=== PATIENT | male | born 1965 | race Caucasian/White ===

== ENCOUNTER 2023-06-13 09:10 | Emergency (ER) | payer OTHER, SELFPAY ==
[2023-06-13 09:19] VITALS: BP 125/74; PULSE 66; RESP 18; TEMP 36.4; O2SAT 95; BMI 37.6
--- NOTE | 2023-06-13 09:26 | XR_ITS ---
Patient: HEYDI GRIFFITH Facility:?[facility] Patient ID:?[id number] Site Patient ID:?[id number]. Site :?1965 Study:?XRay-Extremity Right ELBOW-06/13/2023 9:54:21 AM Ordering Physician:MANJINDER Final Report: Indication: Injury. Technique: Right elbow 3 views. Comparison: None. Findings/Impression: Bones: Lateral image demonstrates a calcified body anterior to the elbow joint measuring 17 x 6 mm. However, this is not confidently seen on the other images. No other osseous abnormality. No fracture line evident. Joint spaces: No definite joint effusion. Soft tissues: Unremarkable. Dictated by Eris Sweet MD @ 06/13/2023 10:04:50 AM Signed by:?Eris Sweet MD @06/13/2023 10:04:50 AM (Electronic Signature)
--- NOTE | 2023-06-13 09:27 | ED_ITS ---
HPI - Extremity Injury (Upper) General Chief Complaint: Extremity Pain/Injury, Upper Stated Complaint: Fell, injured R elbow, L wrist Time Seen by Provider: 06/13/23 09:24 History of Present Illness HPI narrative: This 57-year-old male comes in with an injury to his right elbow. He slipped on ice while walking his dog and landed on his right elbow. He reports some mild discomfort also in his left wrist but has good range of motion. He thinks that he might have dislocated his elbow. He did not hit his head or have any other injury. Related Data Home Medications Medication Instructions Recorded Confirmed buspirone 15 mg tablet 15 mg PO BID 06/13/23 06/13/23 escitalopram oxalate 20 mg tablet 20 mg PO DAILY 06/13/23 06/13/23 pantoprazole 20 mg tablet,delayed 20 mg PO DAILY 06/13/23 06/13/23 release polymyxin B sulfate 10,000 1 drp ophthalmic (eye) Q4H 06/13/23 06/13/23 unit-trimethoprim 1 mg/mL eye drops Previous Rx's Medication Instructions Recorded hydrocodone 5 mg-acetaminophen 325 1 tab PO Q4-6H PRN pain #15 tabs 06/13/23 mg tablet Allergies Allergy/AdvReac Type Severity Reaction Status Date / Time amoxicillin Allergy Verified 06/13/23 09:21 NSAIDS (Non-Steroidal Allergy Verified 06/13/23 09:21 Anti-Inflamma Review of Systems Status of ROS: Reports: 10 or more systems reviewed and unremarkable except as noted in History and below Narrative: Constitutional: No fevers, no weight gain or loss. Eyes: No discharge. No vision changes. HENT: No congestion, no sore throat, no ear pain. Cardiovascular: No chest pain, no palpitations. Respiratory: No shortness of breath, no wheezes, no cough. Gastrointestinal: No abdominal pain, no vomiting, no diarrhea. Genitourinary: No dysuria, no hematuria. Musculoskeletal: Right elbow injury as described above. Skin: No rashes, no pruritis. Neurological: No dizziness, weakness, sensory change, speech change. Endo/Heme/Allergies: No bruising or bleeding. No polydipsia. Pysch: no suicidality, no anxiety, no insomnia. All other systems reviewed and are negative. Exam Narrative: Exam Narrative: Constitutional: Well-developed, well-nourished, no acute distress. HEENT: Normocephalic, atraumatic. Neck: Normal range of motion. Nontender. Supple. Heart: Regular. No murmurs. Normal rate. Intact distal pulses. Lungs: Clear to auscultation. No chest discomfort. No wheezes, rhonchi, or rales. Abdomen: Normal bowel sounds. Nontender. No rebound tenderness. Genitalia: Deferred. Back: No midline tenderness. Normal range of motion. Extremities: Diffuse swelling of the right elbow with associated tenderness. Skin: Intact. No rash. Warm. No erythema or pallor. Neurologic: No altered sensation. No weakness. Alert and oriented. Psychiatric: No suicidality. No anxiety or depression. No insomnia. Nursing notes and vitals signs are reviewed. Const: Vital Signs, click to edit/add: Vital Signs - 24 hr 06/13/23 09:19 Temperature 97.5 F L Pulse Rate [Right Pulse Oximeter] 66 Respiratory Rate 18 Blood Pressure [Ri ght Upper Arm] 125/74 Pulse Oximetry 95 Oxygen Delivery Me thod Room Air Course Vital Signs Vital signs: Initial Vital Signs Temperature 97.5 F L 06/13/23 09:19 Temperature Source Temporal Artery Scan 06/13/23 09:19 Pulse Rate 66 06/13/23 09:19 Respiratory Rate 18 06/13/23 09:19 Blood Pressure 125/74 06/13/23 09:19 Blood Pressure Mean 91 06/13/23 09:19 Blood Pressure Position Sitting 06/13/23 09:19 Pulse Oximetry 95 06/13/23 09:19 Oxygen Delivery Method Room Air 06/13/23 09:19 Vital Signs Temperature 97.5 F L 06/13/23 09:19 Pulse Rate 66 06/13/23 09:19 Respiratory Rate 18 06/13/23 09:19 Blood Pressure 125/74 06/13/23 09:19 Pulse Oximetry 95 06/13/23 09:19 Oxygen Delivery Method Room Air 06/13/23 09:19 Temperature 97.5 F L 06/13/23 09:19 Pulse Rate 66 06/13/23 09:19 Respiratory Rate 18 06/13/23 09:19 Blood Pressure 125/74 06/13/23 09:19 Pulse Oximetry 95 06/13/23 09:19 Oxygen Delivery Method Room Air 06/13/23 09:19 Medications Administered Medications: Discontinued Medications Generic Name Dose Route Start Last Admin Trade Name Cade PRN Reason Stop Dose Admin Hydrocodone Bitart/Acetaminophen 1 tab 06/13/23 10:01 06/13/23 10:14 Hydrocodone-Acetamin 5-325 Mg 1 Tab PO 06/13/23 10:02 1 tab ONCE ONE Administration MDM - Extremity Injury (Upper) MDM Narrative Medical decision making narrative: This patient comes in with an injury to his right elbow. X-ray images are obtained in by my review and with radiology report there is a osseous structure that is visualized only on 1 lateral view. This is not seen on other views. There is no fracture line evidence in these images. This was reassuring to the patient. He did receive a sling and an oral tablet of [place]. A prescription for [place] is provided also. He is encouraged to follow-up with orthopedic clinic if not improving otherwise he should increase activity as tolerated. Discharge Plan Discharge Clinical Impression: Contusion of elbow, right Patient Disposition: Home, Self-Care Condition: Stable Additional Instructions: Wear sling as needed. Increase activity as tolerated. Take medication also as needed and directed. Follow up with MD or orthopedic clinic or return if worsening. Prescriptions: New hydrocodone-acetaminophen 5-325 mg tablet 1 tab PO Q4-6H PRN (Reason: pain) Qty: 15 0RF No Action pantoprazole 20 mg tablet,delayed release (DR/EC) 20 mg PO DAILY polymyxin B sulf-trimethoprim 10,000 unit- 1 mg/mL drops 1 drp ophthalmic (eye) Q4H buspirone 15 mg tablet 15 mg PO BID escitalopram oxalate 20 mg tablet 20 mg PO DAILY Follow Up/Referrals: Provider,Not a Local [Primary Care Provider] - Stand Alone Forms: Zhui [facility] Info Instructions
[2023-06-13] MEDS: HYDROCODONE-ACETAMIN 5-325 MG 1 TAB PO (10:14)
== END 2023-06-13 11:13 | disposition home or self-care (01) ==
PROVIDERS: Emergency Provider Emergency Medicine Emergency Medical Services
DX: S50.01XA Contusion of right elbow, initial encounter (principal); W00.0XXA Fall on same level due to ice and snow, initial encounter; Y93.K1 Activity, walking an animal
CPT/HCPCS: 73080; 99283; 99284; A9270

== ENCOUNTER 2023-06-29 09:15 | Outpatient (CLI) | payer OTHER, SELFPAY ==
--- NOTE | 2023-06-29 09:15 | MR_ITS ---
[address] [address] Phone:?[phone] Fax:?[phone] Referring Physician Information: De Khan M.D. [id number] [facility] [address] Phone:?[phone] Fax:?[phone] Patient:Dell Wilkes D.O.B:?1965 Sex:?Male Phone:?[phone] [facility] MRN:?[id number] Exam Date:?06/29/2023 EXAM: MRI OF THE RIGHT ELBOW CLINICAL INFORMATION: The patient is a 57-year-old with right elbow pain. Evaluate for loose body. Evaluate fracture. PRIOR SURGERY: None reported. COMPARISON STUDIES: Comparison is made to prior radiographs dated 06/13/2023. TECHNICAL INFORMATION: Imaging was performed on a high-field, 1.5 [place] MR scanner. Axial, coronal, and sagittal proton-density and T2 imaging of the right elbow was performed in addition to coronal STIR imaging. FINDINGS: Elbow joint: Effusion: Moderate. Subcutaneous soft tissue edema and/or hemorrhage can be seen circumferentially about the right elbow. Ganglion cyst: No well-defined ganglion cyst formation is identified. Osteochondral surfaces: Disruption of the articular surfaces can be seen in the region of the coronoid process fracture discussed below. There is no evidence for well-defined osteochondral fragmentation along the articular surfaces. No well-defined areas of broad-based, full-thickness chondral defects are noted. Loose bodies: A displaced fracture of the coronoid process can be seen as discussed below. No other intra-articular loose bodies are identified. Olecranon bursa: No well-defined fluid collection can be seen to suggest bursitis. Osseous structures: Humerus: Imaging of the distal humerus demonstrates areas of increased marrow signal intensity involving the posterior aspects of the medial and lateral humeral condyles. Areas of suspected bony impaction are present. The findings may be related to a dislocation event of the elbow. No additional areas of well- defined bony injury of the distal humerus can be seen. No well-defined osteochondral fragmentation can be seen along the articular surfaces of the capitellum. Radius: Marrow edema within the proximal radius can be seen, most prominently noted along the anterior and lateral aspects, seen on coronal series 4 image 12 and on coronal series 4 image 10. The findings are in keeping with broad-based areas of bony contusion and may be related to elbow dislocation. Mild cortical impaction along the anterior aspect of the radial head is thought to be present on sagittal images. CT scanning may be helpful in further evaluation. Ulna: Imaging of the proximal ulna demonstrates marrow edema involving the coronoid process region with a displaced fracture fragment seen on sagittal series 5 image 15 and on coronal series 6 image 14. The displaced fracture of the coronoid process measures approximately 15 mm in mediolateral dimension, 9 mm in craniocaudal dimension, and 9 mm in anteroposterior dimension. CT scanning may be helpful in further evaluation of this coronoid process fracture. No other definite evidence for well-defined bony injury of the proximal ulna can be seen. Myotendinous structures: Biceps: Intact, without tendinopathy or tear. Triceps: Intact posterior tendinous and anterior muscular insertions and lateral aponeurotic component, without tendinopathy, strain or tear. Brachialis: Strain of the distal brachialis can be seen without evidence for rupture or retraction. Forearm extensors: Moderate thickening and irregularity of the common extensor origin can be seen with areas of intrasubstance splitting. No definite evidence for complete disruption or retraction is identified. No other definite injuries to the forearm extensors can be seen. Forearm flexors: No evidence for rupture of the common flexor origin is seen, however broad-based strain is noted involving the flexor digitorum superficialis muscle belly and myotendinous junction on coronal series 4 image 13 and on axial series 3 image 63. No other definite injuries of the forearm flexors are noted. Ligaments: Ulnar collateral: There is severe sprain and suspected rupture of the ulnar collateral ligament, noted to best advantage on coronal series 4 image 11. Radial collateral: Suspected disruption of the proximal attachments of the radial collateral ligament are seen on coronal series 4 image 11. Lateral ulnar collateral: A moderate to severe injury to the lateral ulnar collateral ligament can be seen on coronal series 4 image 8. Full-thickness tearing cannot be excluded on the basis of this MRI examination. Annular: Intact. Neurovascular structures: Ulnar nerve: Normal, without appreciable edema, thickening or mass. Median neurovascular bundle: Normal. Radial neurovascular bundle: Normal. CONCLUSION: 1. Findings in keeping with an elbow dislocation event, including a displaced fracture of the coronoid process as well as areas of contusion and/or impaction of the distal humerus and proximal radius. CT scanning may be helpful in further evaluation of bony injuries if clinically warranted. 2. Moderate elbow joint effusion. 3. Suspected areas of injury and disruption involving the ulnar and radial collateral ligaments with additional injury to the lateral ulnar collateral ligament. 4. Thickening and splitting of the common extensor origin at the lateral epicondyle without definite evidence for complete disruption. 5. Broad-based strain of the flexor digitorum superficialis without definite evidence for disruption of the common flexor origin. 6. No definite neurovascular abnormalities are identified. AEC Electronically signed on 06/29/2023 11:18:00 AM by Kenny Garay M.D.
== END 2023-06-29 09:16 | disposition home or self-care (01) ==
PROVIDERS: PCP Physician Assistant Medical; Visit Provider Orthopaedic Surgery Sports Medicine
DX: M25.521 Pain in right elbow (principal); S53.104A Unspecified dislocation of right ulnohumeral joint, initial encounter; M25.421 Effusion, right elbow; S42.401A Unspecified fracture of lower end of right humerus, initial encounter for closed fracture; M24.021 Loose body in right elbow
CPT/HCPCS: 73221

== ENCOUNTER 2023-08-26 08:15 | Outpatient (RCR) | payer OTHER, SELFPAY ==
--- NOTE | 2023-08-10 09:49 | OT.OPOE ---
OT Outpatient Ortho Eval OT Outpatient Ortho Eval* Start: 08/10/23 08:28 Freq: Status: Active Protocol: Document 08/10/23 08:29 KEVIN (Rec: 08/10/23 09:48 KEVIN [id number]) E-signed By Rianna Mendoza OTR/L, CLT OT OP Ortho Eval Details Complexity Complexity Low Insurance Information Other Insurance [employer] Outpatient History/Precautions Current Condition/Medical Diagnosis Referring Provider Dr. De Khan Treatment Diagnosis M25.621: Stiffness of R elbow; M25.521 Pain in R elbow Date of Onset 06/13/23 slipped on ice while walking his dog Other Precautions Medical Dx: S42.401A - Unspecified fracture of lower end of right humerus, initial encounter for closed fracture S42.401A - Unspecified fracture of lower end of right humerus, initial encounter for closed fracture, S53.104A - Unspecified dislocation of right ulnohumeral joint, initial encounter, S53.401A - Unspecified sprain of right elbow, initial encounter, S66.819A - Strain of other specified muscles, fascia and tendons at wrist and hand level, unspecified hand, initial encounter Other Conditions (Had a R wrist break and surgery repair about 4 years ago but patient states this isn't impacting the R elbow) Strain of flexor digitorum superficialis tendon (Acute) Broad-based strain of the flexor digitorum superficialis S66.819A - Strain of other specified muscles, fascia and tendons at wrist and hand level, unspecified hand, initial encounter Sprain of right elbow (Acute) - Injury and disruption of the ulnar and radial collateral ligaments, and injury of the lateral ulnar collateral ligament - Thickening and splitting of the common extensor origin at the lateral epicondyle S53.401A - Unspecified sprain of right elbow, initial encounter (ICD-10) Effusion of right elbow (Acute ) moderate M25.421 - Effusion, right elbow (ICD-10) Closed fracture of right elbow (Acute) displaced fracture of the coronoid process as well as areas of contusion and/or impaction of the distal humerus and proximal radius S42.401A - Unspecified fracture of lower end of right humerus, initial encounter for closed fracture (ICD-10) Loose body of right elbow M24.021 - Loose body in right elbow (ICD-10) Dislocation of elbow, right, closed (Acute) S53.104A - Unspecified dislocation of right ulnohumeral joint, initial encounter (ICD-10) Medical/Functional History Medical History Reviewed Yes Prior Level of Function/Mobility Indep with self-cares/IADLs 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 Social History 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 This injury occurred on when he slipped on ice while walking his dog. Chief compliant now is R elbow stiffness, lacking AROM, decreased strength and 3/10 elbow pain. Pain Assessment Pain Present Pain Present Pain Reported Location Right Elbow Description Radiating,Pressure,With Movement,Heaviness Intensity 3 Goniometric Comments Goniometric Comments Goniometric Comments UE Elbow Extension/Flexion AROM: (20-120 degrees) Passively 16-130 degrees ( slight pain increase to 4 out of 10 with extension) Pronation/Supination: 90/90, Wrist AROM is FULL Hand Pinch/Precision Lens Generator Strength Hand Right Precision Lens Generator Strength Position 1 (lbs) 45 Precision Lens Generator Strength Position 2 (lbs) 35 Lateral Pinch Strength (lbs) 11 Three Point Pinch (lbs) 11 Tip Pinch Strength (lbs) 5 Left Precision Lens Generator Strength Position 1 (lbs) 65 Precision Lens Generator Strength Position 2 (lbs) 62 Lateral Pinch Strength (lbs) 13 Three Point Pinch (lbs) 11 Tip Pinch Strength (lbs) 7 OT Objective Data Observations/Posture/Limb Appearance Objective Observations R UE: Patient still has tenderness: moderately tender posterolateral elbow, mildly tender medial elbow Skin/Wounds/Edema Comments Right Elbow: No erythema, induration or other cutaneous changes Sensation Sensation Assessment Summary Comments R UE: Intact sensation, 2+ radial pulse, Neurologic intact distally Digits pink, warm, brisk cap refill. Patient reports no numbness, tingling, burning sensations in any part of the R UE. Additional Information Objective Additional Information X-ray (copied from chart): IMAGING: AP and Lateral views of the right elbow were obtained today from [facility] , were ordered and reviewed by me today, and show concentrically reduced radiocapitellar and ulnar trochlear joints. The small anterior fracture fragment which appears to be a coronoid fracture remains in a relatively stable position with moderate displacement. Appears to be a type 2 coronoid fracture. Effusion has diminished significantly. OT Problems Problems Problems Decreased Strength,Decreased Range of Motion,Pain,Lifting, Gripping,Pinching Other Problems Opening Containers,Dressing, Computer,Sleeping Patient Potential Excellent Assessment Assessment Assessment 58-year-old pleasant R hand dominant male presents to the clinic with injury to the R UE : closed treatment of a closed acute displaced fracture of the coronoid process as well as areas of contusion and/or impaction of the distal humerus and proximal radius. This injury occurred on when he slipped on ice while walking his dog. Chief compliant now is R elbow stiffness, lacking AROM, decreased strength and 3/10 elbow pain. Lab Associate/Pinches (see grid) are below norms for gender/age. Patient reported to therapist that he is still sleeping in the sling at night just because it is more comfortable for him, reminded him that we need to slowly wean from doing this, suggested him to try a pillow from armpit down the arm instead. Patient is anticipated to achieve all goals written in this POC. Patient will f/u with Dr. Khan on 10/01/23 at 8:30 am for clinical reassessment and repeat x-rays, two views of the right elbow. Occupational Therapy Treatment Plan - OP Potential Rehabilitation Potential Excellent Barriers Barriers to goal attainment None noted, patient highly motivated Set Goals Goals Set with Patient Yes Goals Goals 1. Patient will increase AROM of the R (dominant) UE (On EVAL 08/10/23: UE Elbow Extension/Flexion AROM: (20- 120 degrees) Passively 16-130 degrees (slight pain increase to 4 out of 10 with extension) . 2. 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 3. Through activity participation in skilled therapy sessions, and consistency in performing a customized HEP, patient will improve capacity of tendons and muscles to manage load in order to have less pain with ADLs, work, leisure activities and IADLs. Target Date 8 weeks Treatment Plan Treatment Plan Evaluation,Edema Control,Joint Mobilization,Manual Therapy, Ultrasound,Therapeutic Exercise,Therapeutic Activities,Self Care/Home Management,Education Expected Frequency 1-2x Week Expected Duration 8-10 Weeks Home Program Home Program Home Program Initiated Home Program Specifics Patient is borrowing therapist personal [employer] to work on gentle stretches and strengthening. Taught and trained him on use of device in clinic with hand in 3 different positions (palm up, neutral and palm down). Patient demonstrated understanding of this and was provided with a handout with pictures. Recertification Information Recertification Information Initial Certification Date 08/10/23 Recertification Due Date 11/08/23 Click To Default 'Per treatment plan' Per treatment plan Continued Plan of Care and Interventions Per treatment plan Provider Signature Shows Agreement With POC & Medical Necessity Physician Comment/Change Comment or Changes Physician NPI Number #
== END 2023-10-28 13:14 | disposition home or self-care (01) ==
PROVIDERS: PCP Physician Assistant Medical; Visit Provider Orthopaedic Surgery Sports Medicine
DX: S42.401A Unspecified fracture of lower end of right humerus, initial encounter for closed fracture (principal); S53.104A Unspecified dislocation of right ulnohumeral joint, initial encounter; S53.401A Unspecified sprain of right elbow, initial encounter; S66.819A Strain of other specified muscles, fascia and tendons at wrist and hand level, unspecified hand, initial encounter; M25.621 Stiffness of right elbow, not elsewhere classified; M25.521 Pain in right elbow; Z51.89 Encounter for other specified aftercare
CPT/HCPCS: 97035; 97110; 97140; 97165; X5282

== ENCOUNTER 2024-02-03 23:26 | Emergency (ER) | payer OTHER, SELFPAY ==
[2024-02-03 23:39] VITALS: BP 138/85; PULSE 61; RESP 16; TEMP 37.1; O2SAT 95; BMI 38.7
--- NOTE | 2024-02-04 00:02 | CRLHL7_ITS ---
For Patients: As a result of the Century Cures Act, medical imaging exams and procedure reports are released immediately into your electronic medical record. You may view this report before your referring provider. If you have questions, please contact your health care provider. INDICATION: Pain. TECHNIQUE: Left foot 3 view. COMPARISON: None. FINDINGS: No acute fracture or dislocation. Accessory navicular. Chronic appearing ossicles adjacent to the distal tibia and fibula. Plantar calcaneal spur. Mild diffuse soft tissue swelling. IMPRESSION: Mild diffuse soft tissue swelling. No fracture identified. Dictated by Vicky Pimentel MD @ 02/04/2024 1:04:05 AM (Electronically Signed)
--- NOTE | 2024-02-04 00:02 | ED_ITS ---
HPI - General Adult General Chief complaint: Extremity Pain/Injury, Lower Stated complaint: left foot pain Time Seen by Provider: 02/03/24 23:53 History of Present Illness HPI narrative: Patient is a 58-year-old gentleman who comes in today with pain across the metatarsal heads of his left foot. He has had no fevers no chills no night sweats. He has had previous cellulitis of his foot but this feels slightly different. He has had no recent injuries. He has no skin breakdown. Does have some redness and bogginess across the metatarsal heads but no other significant symptoms. Pain is severe he is unable to the bear weight without significant discomfort. Related Data Home Medications ?Medication ?Instructions ?Recorded ?Confirmed escitalopram oxalate 20 mg tablet 20 mg PO DAILY 06/13/23 10/01/23 pantoprazole 20 mg tablet,delayed 20 mg PO DAILY 06/13/23 10/01/23 release polymyxin B sulfate 10,000 1 drp ophthalmic (eye) Q4H 06/13/23 10/01/23 unit-trimethoprim 1 mg/mL eye drops Previous Rx's ?Medication ?Instructions ?Recorded hydrocodone 5 mg-acetaminophen 325 1 tab PO Q4-8H PRN pain #25 tabs 07/01/23 mg tablet Allergies Allergy/AdvReac Type Severity Reaction Status Date / Time amoxicillin Allergy Verified 02/03/24 23:39 NSAIDS (Non-Steroidal Allergy Verified 02/03/24 23:39 Anti-Inflamma Review of Systems Status of ROS: Reports: 10 or more systems reviewed and unremarkable except as noted in History and below [facility] Medical History Upper gastrointestinal hemorrhage (11/18/12) ?K92.2 - Gastrointestinal hemorrhage, unspecified (ICD-10) Prediabetes ?R73.03 - Prediabetes (ICD-10) Obesity with body mass index 30 or greater (11/18/12) ?E66.9 - Obesity, unspecified (ICD-10) Irritable bowel syndrome ?K58.9 - Irritable bowel syndrome without diarrhea (ICD-10) Gastroesophageal reflux disease (11/18/12) ?K21.9 - Gastro-esophageal reflux disease without esophagitis (ICD-10) Fracture of wrist ?S62.109A - Fracture of unspecified carpal bone, unspecified wrist, initial encounter for closed fracture (ICD-10) Fracture of radius ?S52.90XA - Unspecified fracture of unspecified forearm, initial encounter for closed fracture (ICD-10) Eczema (11/18/12) ?L30.9 - Dermatitis, unspecified (ICD-10) Depression (11/18/12) ?F32.A - Depression, unspecified (ICD-10) Closed fracture of styloid process of ulna ?S52.613A - Displaced fracture of unspecified ulna styloid process, initial encounter for closed fracture (ICD-10) 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 (ICD-10) Surgical History History of umbilical hernia repair (11/18/12) ?Z98.890 - Other specified postprocedural states (ICD-10) ?Z87.19 - Personal history of other diseases of the digestive system (ICD-10) H/O hernia repair ?Z98.890 - Other specified postprocedural states (ICD-10) ?Z87.19 - Personal history of other diseases of the digestive system (ICD-10) S/P ORIF (open reduction internal fixation) fracture (04/01/20) ?Z98.890 - Other specified postprocedural states (ICD-10) ?Z87.81 - Personal history of (healed) traumatic fracture (ICD-10) Social History Smoking Status: Never smoker Do you use any of these nicotine containing products: None Second hand tobacco smoke exposure: No How often do you have a drink containing alcohol: never How often do you have six or more drinks on one occasion: Never AUDIT-C Alcohol total score: 0 Non-prescribed substance use: denies use service: No Exam Narrative: Exam Narrative: EXAM GENERAL: Patient appears comfortable and well. EYES: No scleral icterus. ENT: Tympanic membranes and oropharynx normal. THYROID: no thyroid nodules or thyromegaly. LYMPH: No supraclavicular or cervical lymphadenopathy. SKIN: Visible skin seen during exam normal or with benign process only. EXT: Mild swelling and induration of the metatarsal heads pain to palpation. HEART: Regular rate and rhythm with no murmurs, rubs, or gallops. LUNGS: Clear to auscultation bilaterally with no crackles or wheezes. ABD: Soft, non tender, non distended. PSYCH: Good eye contact, speech is not pressured. Const: Vital Signs, click to edit/add: Vital Signs - 24 hr 02/03/24 23:39 Temperature 98.8 F Pulse Rate [Pulse Oximeter] 61 Respiratory Rate 16 Blood Pressure [Ri ght Upper Arm] 138/85 Pulse Oximetry 95 Oxygen Delivery Me thod Room Air Course Course ED Course: Patient seen and examined. X-ray performed showing no acute abnormalities. Vital Signs Vital signs: Initial Vital Signs Temperature 98.8 F 02/03/24 23:39 Temperature Source Temporal Artery Scan 02/03/24 23:39 Pulse Rate 61 02/03/24 23:39 Respiratory Rate 16 02/03/24 23:39 Blood Pressure 138/85 02/03/24 23:39 Blood Pressure Mean 102 02/03/24 23:39 Blood Pressure Position High-Fowlers 02/03/24 23:39 Pulse Oximetry 95 02/03/24 23:39 Oxygen Delivery Method Room Air 02/03/24 23:39 Vital Signs Temperature 98.8 F 02/03/24 23:39 Pulse Rate 61 02/03/24 23:39 Respiratory Rate 16 02/03/24 23:39 Blood Pressure 138/85 02/03/24 23:39 Pulse Oximetry 95 02/03/24 23:39 Oxygen Delivery Method Room Air 02/03/24 23:39 Temperature 98.8 F 02/03/24 23:39 Pulse Rate 61 02/03/24 23:39 Respiratory Rate 16 02/03/24 23:39 Blood Pressure 138/85 02/03/24 23:39 Pulse Oximetry 95 02/03/24 23:39 Oxygen Delivery Method Room Air 02/03/24 23:39 Medical Decision Making MDM Narrative Medical decision making narrative: Patient is a 58-year-old gentleman comes in today with pain across the metatarsal heads as well as swelling this is most consistent with gout. Other considerations would be cellulitis osteomyelitis fracture sprain. This time for review his x-rays a did send him home with short course of prednisone. He will follow-up with primary physician to further evaluate possible causes including checking serum uric acid and electrolytes. I do not believe checking them tonight would add anything to his treatment. Discharge Plan Discharge Clinical Impression: Gout Patient Disposition: Home, Self-Care Condition: Stable Instructions: Gout (ED) Additional Instructions: Prednisone as directed Tylenol Weight-bearing as tolerated Follow-up with your doctor as needed. Activity Level: No Restrictions Discharge Diet: Regular Prescriptions: No Action hydrocodone-acetaminophen 5-325 mg tablet 1 tab PO Q4-8H PRN (Reason: pain) Qty: 25 0RF pantoprazole 20 mg tablet,delayed release (DR/EC) 20 mg PO DAILY polymyxin B sulf-trimethoprim 10,000 unit- 1 mg/mL drops 1 drp ophthalmic (eye) Q4H escitalopram oxalate 20 mg tablet 20 mg PO DAILY Follow Up/Referrals: Fabiola Khoury PA-C [Primary Care Provider] - Stand Alone Forms: [employer] Info Instructions
--- OUTSIDE RECORDS SUMMARY | 2024-02-04 00:43 | XMS_ITS | Continuity of Care Document ---
Author Organization [facility] Address [address] [place] [address] Insurance Providers Payer Plan Claims Address Claims Phone Policy Number Group Number Relation Employer Guarantor Name Guarantor Guarantor Address Guarantor Phone [employer] [address], [place] [address] [id number] Self Troy Katrin 1965 [address] [place] [address] Healt [employer] ners [address], [place] [address] tel:[phone] Self Troy Katrin 1965 [address] [address] [employer] [address], [place] [address] [phone] Self Troy Katrin 1965 [address] [place] [address] Problems Unknown Problems Results No Results Allergies, adverse reactions, alerts No known allergies and adverse reactions Medications No administered medications reported Vital Signs Date Vital Result Comment 08/05/2023 Body Height [id number] m Body Weight 113.15658121838 kg Body Mass Index 35.87 kg/m2 Social History No smoking Hx information available
--- OUTSIDE RECORDS SUMMARY | 2024-02-04 00:43 | XMS_ITS | Clinical Summary ---
Author Organization [facility] Address [place], [place] [address] Care Team Providers Care Sap Security Architect Name Role Phone Fabiola Khoury Primary Care Provider Allergies Active Allergy Reactions Criticality Noted Date Comments Amoxicillin GI Upset Medium 05/04/2018 Nsaids (Non-Steroidal Anti-I nflammatory Drug) GI Bleeding High 06/03/2018 Medications Medication Sig Dispensed Refills Start Date End Date Status acetaminophen (TYLENOL EXTRA STRGTH) 500 mg tabletIndication s:Other migraine without status migrainosus, intractable Take 2 Tablets (1,000 mg) by mouth 3 times daily if needed for Headache. Max acetaminophen dose: 4000mg in 24 hrs. 100 Tablet 3 06/27/2021 Active Mag Aspart-Potassium Aspart 250-250 mg capIndications:T ourette disorder Take 1 Tablet by mouth two times daily. 180 Capsule 3 06/24/2022 Active pantoprazole (PROTONIX) 20 mg tabletIndication s:Chronic GERD TAKE 1 TABLET BY MOUTH EVERY DAY 90 Tablet 2 09/16/2023 Active escitalopram oxalate (LEXAPRO) 20 mg tabletIndication s:Moderate episode of recurrent major depressive disorder (HC) Take 1 Tablet (20 mg) by mouth once daily. 90 Tablet 10/11/2023 Active triamcinolone 0.5 % creamIndications :Chronic eczema Apply topically to affected area(s) three times daily. 454 g 01/19/2024 Active triamcinolone 0.5% (ARISTOCORT) 0.5 % creamIndications :Chronic eczema Apply topically to affected area(s) 3 times daily. 454 g 05/19/2019 01/19/20 24 Discontinue d(Reorder (E-cancel not sent)) oxyCODONE-acetam inophen (Percocet) 5-325 mg per tabletIndication s:Closed displaced fracture of coronoid process of right ulna with routine healing, subsequent encounter Take 1 Tablet by mouth 3 times daily if needed for Pain. Max acetaminophen dose: 4000mg in 24 hrs. 21 Tablet 06/23/2023 01/19/20 24 Discontinue d(*Med complete/Re gimen complete/Le yuan of care change) ARIPiprazole (Abilify) 2 mg tabletIndication s:Generalized anxiety disorder,Tourett e disorder Take 1 Tablet (2 mg) by mouth once daily. For 1 week, if tolerating well, increase to 2 tabs (4mg) once daily 60 Tablet 1 10/11/2023 01/19/20 24 Discontinue d(*Med complete/Re gimen complete/Le yuan of care change) cefadroxil (DURICEF) 500 mg capsuleIndicatio ns:Cellulitis of skin Take 1 Capsule (500 mg) by mouth two times daily for 7 days. 14 Capsule 01/06/2024 01/13/20 24 Active Problems Problem Noted Date Diagnosed Date Tourette disorder 06/24/2022 Encounters Date Type Department Care Team Description 01/19/2024 12:05 PM CDT Office Visit [address] [address] Kiran Womack MD Follow Up (following up on left foot, still feels painful on top of foot, feels like there's a lump on top of foot and bottom near toes) 01/19/2024 Travel 01/06/2024 8:30 AM CDT Office Visit [address] [address] Kiran Womack MD Gout (Possible gout left big toe.) 01/06/2024 Travel from Last 3 Months Immunizations Name Administration Dates Next Due AMB Influenza, IIV4 PF (=>6 mos Flulaval,Fluzone Fluarix)(Flu Clinic Only) 02/04/2018 COVID-19 vaccine (Moderna 100mcg/0.5mL) PF, MDV 02/19/2021,01/22/2021 Influenza A (H1N1), Inactivated 01/28/2009 Influenza Virus, Unspecified 01/26/2019, 12/25/2015,12/27/2014,2002 Influenza, IIV3 (Age >=3 years) 01/16/2014,12/13,12/15/2011 Influenza, IIV4 (Age 6-35 Mos) 01/05/2017 Measles 01/07/1979 Polio Virus, Unspecified 01/07/1979 Rubella 01/07/1979 Td (Age >=7 Years) 07/28/2002,01/07/1979 Td, Preservative Free (age > = 7 Years) 12/23/2007 Tdap 01/10/2015 Family History Medical History Relation Name Comments Stroke Father Dementia Mother Depression Mother Diabetes Mother Relation Name Status Comments Father Mother Social History Tobacco Use Types Packs/Day Years Used Date Smoking Tobacco: Never Smokeless Tobacco: Never Tobacco Cessation:Counseling Given: Yes Alcohol Use Standard Drinks/Week Comments No 0 (1 standard drink = 0.6 oz pur e alcohol) PHQ-2 Answer Date Recorded PHQ-2 TOTAL SCORE 0 01/06/2024 Social Connections Answer Date Recorded Do you often feel lonely or isolated from those around you? 0 01/06/2024 Financial Resource Strain Answer Date R ecorded Difficulty of Paying Living Expenses 3 01/06/2024 Difficulty of Paying Living Expenses Not on file 01/06/2024 Food Insecurity Answer Date Recorded Do you worry your food will run out before you are able to buy more? 1 01/06/2024 Transportation Needs Answer Date Record ed Does lack of transportation keep you from medica l appointments? 1 01/06/2024 Does lack of transportation keep you from work, meetings or getting things that you need? 1 01/06/2024 Housing Stability Answer Date Recorded What is your housing situation today? 1 01/06/2024 Sex and Gender Information Value Date Recorded Sex Assigned at Not on file Gender Identity Not on file Sexual Orientation Not on file Obstetrics History Last Filed Vital Signs Vital Sign Reading Time Taken Comments Blood Pressure 126/82 01/19/2024 12:07 PM CDT Pulse 72 01/19/2024 12:07 PM CDT Temperature 37.2 ??C (99 ??F) 06/03/2018 12: 50 PM CDT Respiratory Rate - - Oxygen Saturation 97% 01/06/2024 8:39 AM CDT Inhaled Oxygen Concentration - - Weight 130.1 kg (286 lb 14.4 oz) 2023 12:07 PM CDT Height 177.8 cm (5' 10) 01/06/2024 8:39 AM CDT Body Mass Index 41.17 01/06/2024 8:39 AM CDT Plan of Treatment Health Maintenance Due Date Last Done Comments HIV for age 15-65 07/28/1979 Zoster (shingles) series for age 50+ (1 of 2) 2014 Fecal testing non-DNA (FIT,FOBT,iFOBT) for age 45-75 10/24/2022 10/24/2021 COVID-19 vaccine series ( season) 2023 02/19/2021, 01/22/2021 Influenza for age 50-64 11/21/2023 01/27/20 19, 02/04/2018, 12/25/2015, Additional history exists BMI (ht and wt on same day) for age 18+ 01/05/2025 01/06/2024 Depression screening for age 12+ 01/05/2025 01/06/2024, 10/11/2023, 08/06/2022, Additional history exists Tetanus booster 01/10/2025 01/10/2015, 1005/2007, 07/28/2002, Additional history exists Lipids for age 45-75 06/25/2027 06/24/2022, 06/27/2021, 05/19/2019 Tdap Completed 01/10/2015 Hepatitis C screening for age 18-79 Completed 06/27/2021 Pneumococcal series for age 6-64 Aged Out No longer eligible based on patient's age to complete this topic Procedures Procedure Name Priority Date/Time Associated Diagnosis Comments LC LIPID PANEL AND CHOL/HDL RATIO Routine 06/24/2022 8:37 AM CDT Screening cholesterol level OCCULT BLOOD IFOBT STOOL Routine 10/24/2021 1:44 PM CDT Screening for colorectal cancer ANTI HCV Routine 06/27/2021 9:09 AM CDT Need for hepatitis C screening test from Last 3 Months or Most Recently Relevant to Health Maintenance Results * (ABNORMAL) LC LIPID PANEL AND CHOL/HDL RATIO (06/24/2022 8:37 AM CDT) [facility] Cholesterol, Total 243(H) 100 - 199 mg/dL 06/26/2022 11:09 AM T [facility] Triglycerides 260(H) 0 - 149 mg/dL 06/26/2022 11:09 AM [facility] HDL Cholesterol 35(L) >39 mg/dL 11:09 AM [facility] VLDL Cholesterol Daryl 49(H) 5 - 40 mg/dL 06/26/2022 11:09 AM [facility] LDL Chol Calc ([facility]) 159(H) 0 - 99 mg/dL 06/26/2022 11:09 AM [facility] T. Chol/HDL Ratio 6.9(H) 0.0 - 5.0 ratio 06/26/2022 11:09 AM [facility] Comment: ?T. Chol/HDL Ratio ?Men ??Women ?1/2 Avg.Risk ??3.4 ?3.3 ?Avg.Risk ??5.0 ?4.4 ? 2X Avg.Risk ??9.6 ?7.1 ? 3X Avg.Risk 23.4 ?? 11.0 Blood BLOOD SPECIMEN / Unknown Venipuncture / Unknown 06/24/2022 8:37 AM CDT 06/24/2022 8:37 AM CDT Narrative [facility] - 06/26/2022 11:09 AM CDT Performed at: ??[address] - [address] ??[id number] Vice President [employer]: Parish Mejia MD, Phone: ??[phone] Fabiola HAWLEY SEND OUTS Performing Organization Address City/[facility]/ZIP Co de Phone Number [facility] [address] [place] [id number], * OCCULT BLOOD IFOBT STOOL (10/24/2021 1:44 PM CDT) Pathologist [facility] STOOL BLOOD ,IFOBT Negative Negative 10/27/2021 2:34 PM CDT [facility] Stool STOOL SPECIMEN / Unknown Non-Blood / Unknown 10/24/2021 1:44 PM CDT 10/27/2021 1:44 PM CDT Fabiola HAWLEY [facility]OR[facility] Performing Organization Address City/[facility]/ZIP Co de Phone Number [facility] [address] [place] [address], * ANTI HCV (06/27/2021 9:09 AM CDT) [facility] HEPATITIS C ANTIBODY Non-React candis Non-React candis 06/27/2021 4:45 PM CDT [facility] Comment:Antibodies to HCV no t detected; does not exclude the possibility of exposure to HCV. Blood BLOOD SPECIMEN / Unknown Venipuncture / Unknown 06/27/2021 9:09 AM CDT 06/27/2021 9:09 AM CDT Fabiola HAWLEY SEND OUTS [facility] [employer] [facility] [address] [place] [address], [place] from Last 3 Months or Most Recently Relevant to Health Maintenance Care Teams Sap Security Architect Relationship Specialty Start Date End Date Fabiola Khoury PA [address] [place] [address] PCP - General Physician [employer] Research Ecologist 06/03/18
== END 2024-02-04 00:44 | disposition home or self-care (01) ==
LOC: ED 02-04 00:40
PROVIDERS: Emergency Provider Internal Medicine; PCP Physician Assistant Medical
DX: M10.9 Gout, unspecified (principal)
CPT/HCPCS: 73630; 99283

== ENCOUNTER 2025-01-05 08:00 | Outpatient (RCR) | payer OTHER, SELFPAY | END 2025-02-26 14:21 | disposition home or self-care (01) | PROVIDERS: PCP Physician Assistant Medical; Visit Provider Orthopaedic Surgery | DX: M23.204 Derangement of unspecified medial meniscus due to old tear or injury, left knee (principal); M84.362D Stress fracture, left tibia, subsequent encounter for fracture with routine healing; Z51.89 Encounter for other specified aftercare | CPT/HCPCS: 97110; 97140; 97161 ==